=== PATIENT | female | born 1995 | race Hispanic/Latino ===

== ENCOUNTER 2022-03-02 17:08 | Emergency (ER) | payer SELFPAY ==
[~2022-03-02] VITALS: Ht 162.6 cm; Wt 74.8 kg
[2022-03-02] MEDS ORDERED: CYCLOBENZAPRINE5 MG PO (19:00)
[2022-03-02] MEDS ORDERED: MEDROL4 M2 PO (19:00)
[2022-03-02 19:36] LABS: CLARITY,URINE CLEAR (CLEAR); COLOR,URINE YELLOW (YELLOW)
[2022-03-02 19:37] LABS: KETONES,URINE NEGATIVE (NEGATIVE); LEUKOCYTE ESTERASE ,URINE NEGATIVE (NEGATIVE); NITRITE,URINE NEGATIVE (NEGATIVE); PROTEIN,URINE DIPSTICK NEGATIVE (NEGATIVE); URINE UROBILINOGEN 0.2 mg/dL (0.2 - 1)
[2022-03-02 19:44] LABS: BACTERIA,URINE RARE /HPF; EPITHELIAL CELLS,URINE FEW /LPF; RBC,URINE 0-5 /HPF (0-5); WBC,URINE (MAN) 0-5 /HPF (0-5)
[2022-03-02 19:47] LABS: MUCUS,URINE FEW (RARE)
[2022-03-02 21:27] VITALS: BP 116/84
== END 2022-03-02 21:15 | disposition home or self-care (01) ==
LOC: ER 17:24
DX: R50.9 Fever, unspecified (principal); K60.2 Anal fissure, unspecified
CPT/HCPCS: 81001; 81025; 99282